=== PATIENT | female | born 1945 | race Caucasian/White ===

== ENCOUNTER → 2017-01-22 | Outpatient (CLI) | payer MEDICARE, OTHER ==
[2017-01-22 12:42] LABS: FREE T4 0.87 NG/DL (0.76-1.46)
== END ==
LOC: M LAB 11:13
PROVIDERS: ATTEND Internal Medicine Gastroenterology
DX: R15.9 Full incontinence of feces (principal); Z79.899 Other long term (current) drug therapy

== ENCOUNTER → 2017-01-26 | Outpatient (REF) | payer MEDICARE, OTHER | LOC: M LAB REF 11:04 | PROVIDERS: ATTEND Internal Medicine Gastroenterology | DX: R15.9 Full incontinence of feces (principal) ==

== ENCOUNTER → 2017-01-27 | Outpatient (CLI) | payer MEDICARE, OTHER ==
[~2017-01-27] MED LIST: ASPI1TAB PO; ATEN25TA PO; FIBE625T PO; LISI-542 PO; METF-808 PO; NEXI40CA PO; SERT50TA PO
--- NOTE | 2017-01-27 13:04 | REP ---
Clinical: Sitz marker study. Technique: Single supine view of the abdomen and pelvis. Findings: The bowel gas pattern is nonspecific. No residual sitz markers are identified. No organomegaly. Marked chronic levoconvex scoliosis and degenerative changes to the thoracolumbar spine and visualized pelvis/hips. Impression: Nonspecific bowel gas pattern with no residual sitz markers identified. Signed by Binh Freeman MD 01/27/2017 12:54 P
== END ==
LOC: M RAD 08:00
PROVIDERS: ATTEND Internal Medicine Gastroenterology
DX: T18.4XXA Foreign body in colon, initial encounter (principal)

== ENCOUNTER → 2017-02-22 | Outpatient (CLI) | payer MEDICARE, OTHER ==
[~2017-02-22] VITALS: Ht 157.5 cm; Wt 99.8 kg
[~2017-02-22] MED LIST changes: +LIDOCAINE 2% INJ 100 MG/5 ML SDV (FOR ANES.) As Ordered ONE; +LISI2.5T3 PO; +NS 1,000 ML IV SCH; +PROPOFOL 200 MG/20 ML VIAL As Ordered ONE
--- NOTE | 2017-02-22 08:23 | ROOR ---
Patient Name: Kelly Ross Procedure Date: 02/22/2017 7:59 AM Date of : 1945 Age: 71 Room: [facility] Gender: Female Note Status: Finalized Procedure: Colonoscopy Indications: Clinically significant diarrhea of unexplained origin, Fecal incontinence Providers: Nathan CRAMER MD Referring MD: Jadyn CABALLERO MD Requesting Provider: Medicines: Monitored Anesthesia Care Complications: No immediate complications. Procedure: Pre-Anesthesia Assessment: - The heart rate, respiratory rate, oxygen saturations, blood pressure, adequacy of pulmonary ventilation, and response to care were monitored throughout the procedure. The Colonoscope was introduced through the anus and advanced to 8 cm into the ileum. Findings: The perianal and digital rectal examinations were normal. Pertinent negatives include normal sphincter tone and no anal lesion or abnormality was detected. (Exam: Complete, Prep: Good or Excellent.) The terminal ileum appeared normal. The entire examined colon appeared normal on direct and retroflexion views. A few medium-mouthed diverticula were found in the sigmoid colon. Biopsies for histology were taken with a cold forceps from the entire colon for evaluation of microscopic colitis. Impression: - The perianal and digital rectal examinations were normal. Pertinent negatives include normal sphincter tone and no anal lesion or abnormality was detected. - The examined portion of the ileum was normal. - The entire examined colon is normal on direct and retroflexion views. - Mild diverticulosis in the sigmoid colon. - Biopsies were taken with a cold forceps from the entire colon for evaluation of microscopic colitis. Recommendation: - Await pathology results. - Telephone endoscopist for pathology results in 2 weeks. - Use fiber, for example Citrucel, Fibercon, Konsyl or Metamucil. - Start Imodium 1 tablet daily. If symptoms not controlled, then go to Imodium 1 tablet twice a day. Nathan Cramer MD Nathan CRAMER MD 02/22/2017 8:23:28 AM This report has been signed electronically. Number of Addenda: 0 Note Initiated On: 02/22/2017 7:59 AM Estimated Blood Loss: Estimated blood loss: none.
[2017-02-22 08:35] VITALS: BP 148/86
== END ==
LOC: M OPP 06:39
PROVIDERS: ATTEND Internal Medicine Gastroenterology
DX: R19.7 Diarrhea, unspecified (principal); R15.9 Full incontinence of feces; K57.30 Diverticulosis of large intestine without perforation or abscess without bleeding; I10 Essential (primary) hypertension; E11.9 Type 2 diabetes mellitus without complications; K21.9 Gastro-esophageal reflux disease without esophagitis; G47.30 Sleep apnea, unspecified; M48.00 Spinal stenosis, site unspecified; M54.30 Sciatica, unspecified side; R55 Syncope and collapse; Z79.82 Long term (current) use of aspirin; Z79.84 Long term (current) use of oral hypoglycemic drugs; Z79.899 Other long term (current) drug therapy; Z88.2 Allergy status to sulfonamides; Z88.1 Allergy status to other antibiotic agents; Z88.8 Allergy status to other drugs, medicaments and biological substances

== ENCOUNTER → 2017-11-24 | Outpatient (CLI) | payer MEDICARE, OTHER | LOC: M SLEEP 20:00 | DX: G47.33 Obstructive sleep apnea (adult) (pediatric) (principal) | CPT/HCPCS: 95811 ==

== ENCOUNTER → 2018-03-13 | Outpatient (REF) | payer MEDICARE, OTHER ==
[2018-03-13 18:16] LABS: FERRITIN 29 NG/ML (8-252); IRON (FE) 41 UG/DL (50-170); TOTAL IRON BINDING CAPACITY 372 UG/DL (250-450)
== END ==
LOC: M LAB REF 17:36
DX: D50.9 Iron deficiency anemia, unspecified (principal)
CPT/HCPCS: 83550

== ENCOUNTER → 2019-08-21 | Outpatient (REF) | payer MEDICARE, OTHER ==
[~2019-08-21] MED LIST changes: -ASPI1TAB PO; +ASPI81TA26 PO; -LIDOCAINE 2% INJ 100 MG/5 ML SDV (FOR ANES.) As Ordered ONE; +LISI-1046 PO; -LISI2.5T3 PO; -METF-808 PO; +METF-954 PO; -NS 1,000 ML IV SCH; -PROPOFOL 200 MG/20 ML VIAL As Ordered ONE; +SERT-141 PO; -SERT50TA PO
== END ==
LOC: M LAB REF 13:09
PROVIDERS: ATTEND Internal Medicine Nephrology
DX: N39.0 Urinary tract infection, site not specified (principal)

== ENCOUNTER → 2020-05-03 | Outpatient (REF) | payer MEDICARE, OTHER ==
[~2020-05-03] MED LIST changes: -LISI-1046 PO; +LISI2.5T2 PO
== END ==
LOC: M LAB REF 17:54
PROVIDERS: ATTEND Nurse Practitioner Family
DX: N39.0 Urinary tract infection, site not specified (principal)

== ENCOUNTER → 2020-07-11 | Outpatient (REF) | payer MEDICARE, OTHER ==
[2020-07-11 19:01] LABS: MALB URINE SIEMENS 25.3 MG/L; MAU/CREAT RATIO 23.2 MCG/MG (0.0-30.0)
== END ==
LOC: M LAB REF 17:05
PROVIDERS: ATTEND Nurse Practitioner Family
DX: E11.22 Type 2 diabetes mellitus with diabetic chronic kidney disease (principal)

== ENCOUNTER → 2020-12-12 | Outpatient (REF) | payer MEDICARE, OTHER ==
[~2020-12-12] MED LIST changes: -LISI-542 PO; +LISI-898 PO
[2020-12-14 22:09] LABS: TOTAL PROTEIN 7.6 GM/DL (6.4-8.2)
[2020-12-15 10:23] LABS: ALBUMIN 4.06 GM/DL (3.29-5.55); ALBUMIN % 53.4 % (55.8-66.1); ALPHA-1-GLOBULIN % 4.7 % (2.9-4.9); ALPHA-1-GLOBULINS 0.36 GM/DL (0.17-0.41); ALPHA-2-GLOBULINS 0.95 GM/DL (0.42-0.99); ALPHA-2-GLOBULINS % 12.5 % (7.1-11.8); BETA-1-GLOBULINS % 5.3 % (4.7-7.2); BETA-2-GLOBULINS 0.38 GM/DL (0.19-0.55)
[2020-12-15 10:24] LABS: GAMMA GLOBULIN % 19.1 % (11.1-18.8); GAMMA GLOBULINS 1.45 GM/DL (0.65-1.58)
[2020-12-15 10:52] LABS: IMMUNOTYPING SERUM IGG ABNORMAL (NORMAL); IMMUNOTYPING SERUM KAPPA ABNORMAL (NORMAL)
== END ==
LOC: M LAB REF 16:56
PROVIDERS: ATTEND Nurse Practitioner Family
DX: E87.1 Hypo-osmolality and hyponatremia (principal)

== ENCOUNTER → 2021-03-15 | Outpatient (REF) | payer MEDICARE, OTHER ==
[~2021-03-15] MED LIST changes: +ATOR40TA75 PO; +CRAN450T4 PO; +DERM1TAB2 PO; +FERR325T15 PO; +GLIM2TAB4 PO; +HYDR10TAB PO; +MAGN250T7 PO
== END ==
LOC: M LAB REF 17:03
PROVIDERS: ATTEND Nurse Practitioner Family
DX: E83.42 Hypomagnesemia (principal)

== ENCOUNTER → 2021-11-08 | Outpatient (REF) | payer MEDICARE, OTHER ==
[~2021-11-08] MED LIST changes: -LISI-898 PO; -LISI2.5T2 PO; +LISI2.5T9 PO; +LISI5TAB11 PO; +METF-1191 PO; -METF-954 PO
== END ==
LOC: M LAB REF 16:49
PROVIDERS: ATTEND Nurse Practitioner Family
DX: N39.0 Urinary tract infection, site not specified (principal)

== ENCOUNTER → 2022-11-26 | Outpatient (REF) | payer MEDICARE, OTHER ==
[~2022-11-26] MED LIST changes: +CYCL5TAB; +EQL50TAB2 PO
== END ==
LOC: M LAB REF 17:36
PROVIDERS: ATTEND Surgery
DX: E85.9 Amyloidosis, unspecified (principal)

== ENCOUNTER → 2023-06-04 | Outpatient (CLI) | payer MEDICARE, OTHER ==
[~2023-06-04] MED LIST changes: +ASPI325T57 PO; +DONE10TA90; +LIDOCAINE 1% MDV 20ML VIAL As Ordered ONE; +LORA-243 PO
[2023-06-04 12:03] VITALS: TEMP 96.2
[2023-06-04 13:11] VITALS: BP 180/79; O2SAT 95
== END ==
LOC: M IRPRO 11:50
PROVIDERS: ATTEND Otolaryngology
DX: E04.1 Nontoxic single thyroid nodule (principal)

== ENCOUNTER → 2023-06-05 | Outpatient (REF) | payer MEDICARE, OTHER ==
[~2023-06-05] MED LIST changes: -LIDOCAINE 1% MDV 20ML VIAL As Ordered ONE
[2023-06-05 14:29] LABS: APPEARANCE, URINE HAZY (CLEAR); BACTERIA, URINE AUTO 1+ (NEGATIVE); BILIRUBIN, URINE AUTO NEGATIVE (NEGATIVE); BLOOD, URINE BLOOD 1+ (NEGATIVE); COLOR, URINE YELLOW (YELLOW); GLUCOSE, URINE (UA) AUTO NEGATIVE (NEGATIVE); KETONE, URINE AUTO NEGATIVE (NEGATIVE); LEUKOCYTE ESTERASE, URINE AUTO 1+ (NEGATIVE); MUCUS, URINE SMALL (NEGATIVE); NITRITE, URINE AUTO NEGATIVE (NEGATIVE); PROTEIN, URINE AUTO NEGATIVE (NEGATIVE); RBC, URINE AUTO 1 /HPF (0-3); SPECIFIC GRAVITY URINE AUTO 1.013 (1.002-1.035); SQUAMOUS EPITHELIAL CELL UR AU 2 /HPF (0-6); UROBILINOGEN, URINE AUTO 0.2 mg/dL (0.0-2.0); WBC, URINE AUTO 27 /HPF (0-3)
== END ==
LOC: M SMT 13:45
PROVIDERS: ATTEND Physician Assistant
DX: N39.0 Urinary tract infection, site not specified (principal)